=== PATIENT | female | born 2000 | race Caucasian/White ===

== ENCOUNTER 2019-10-18 18:31 | Inpatient (IN) | payer OTHER ==
[2019-10-18 20:40] VITALS: BMI 21.9
--- NOTE | 2019-10-18 21:44 | HP ---
CIWA Score - Admission Criteria [facility] Guidelines: Admission for Medically Managed Detox: Requires at least one of the followin. CIWA greater than 12 2. Seizures within the past 24 hours 3. Delirium tremens within the past 24 hours 4. Hallucinations within the past 24 hours 5. Acute intervention needed for co occurring medical disorder 6. Acute intervention needed for co occurring psychiatric disorder 7. Severe withdrawal that cannot be handled at a lower level of care (continued vomiting, continued diarrhea, abnormal vital signs) requiring intravenous medication and/or fluids 8. Admission ROS [facility] - [facility] Chief Complaint: seeking rehab for benzo and alcohol dependence Allergies/Adverse Reactions: Allergies Allergy/AdvReac Type Severity Reaction Status Date / Time No Known Allergies Allergy Verified 10/18/19 20:30 History of Present Illness: here for rehab services. client is referred by family for alcohol , xanax and cannabis dependence. client reports addicition of mentioned substances started t 6 months ago. reports daily use of alcohol and approx 4 mg of xanax qod. she reports last use of both alcohol and xanax 4 days ago. denies shakes, sweats, anxiety, avh, headache, n/v/d. denies hx/o seizures, +black outs- most recent 4 days ago. denies si/hi. reports first inpatient txment. lives with mother, unemployed, family court Exam Limitations: No Limitations - Ebola screening Have you traveled outside of the country in the last 21 days: No (N) Have you had contact with anyone from an Ebola affected area: No Do you have a fever: No - Review of Systems Constitutional: No Symptoms Reported EENT: reports: Dental Problems (cracked tooth pain) Respiratory: reports: No Symptoms reported Cardiac: reports: No Symptoms Reported GI: reports: No Symptoms Reported : reports: No Symptoms Reported Musculoskeletal: reports: No Symptoms Reported Integumentary: reports: Other (lip abrasion) Neuro: reports: Other (black outs) Endocrine: reports: No Symptoms Reported Hematology: reports: No Symptoms Reported Psychiatric: reports: Orientated x3 Other Systems: Reviewed and Negative Patient History - Patient Medical History Hx Anemia: No Hx Asthma: No Hx Chronic Obstructive Pulmonary Disease (COPD): No Hx Cancer: No Hx Cardiac Disorders: No Hx Congestive Heart Failure: No Hx Hypertension: No Hx Hypercholesterolemia: No Hx Pacemaker: No HX Cerebrovascular Accident: No Hx Seizures: No Hx Diabetes: No Hx Gastrointestinal Disorders: No Hx Liver Disease: No Hx Genitourinary Disorders: No Hx Sexually Transmitted Disorders: Yes (gonorrhea, chlamydia, trich) Hx Renal Disease (ESRD): No Hx Thyroid Disease: No Hx Human Immunodeficiency Virus (HIV): No Hx Hepatitis C: No Hx Depression: No Hx Suicide Attempt: No Hx Bipolar Disorder: No Hx Schizophrenia: No Other Medical History: denies - Patient Surgical History Past Surgical History: Yes Hx Orthopedic Surgery: Yes (left knee) - PPD History Previous Implant?: Yes Documented Results: Negative w/o proof Implanted On Prior [facility] Admission?: No PPD to be Administered?: Yes - Reproductive History Patient is a Female of Child Bearing Age (11 -55 yrs old): Yes Last Menstrual Period: 10/05/19 LMP comment: reg Patient : No (neg uhcg) - Smoking Cessation Smoking history: Current every day smoker Have you smoked in the past 12 months: Yes Aproximately how many cigarettes per day: 3 Hx Chewing Tobacco Use: No Initiated information on smoking cessation: Yes 'Breaking Loose' booklet given: 10/18/19 - Substance & Tx. History Hx Alcohol Use: Yes Hx Substance Use: Yes Substance Use Type: Alcohol, Marijuana, Tranquilizers (xanax) Hx Substance Use Treatment: No - Substances abused Alcohol Substance route: Oral Frequency: Daily Amount used: 3 to 4 drinks Tequila/ 8 oz cups Age of first use: 16 Date of last use: 10/15/19 Alprazolam (Xanax) Substance route: Oral Frequency: 1-2 times per week Amount used: 4mg Age of first use: 16 Date of last use: 10/15/19 Admission Physical Exam S - Vital Signs Vital Signs: Vital Signs - 24 hr 10/18/19 20:29 Temperature 98.4 F Pulse Rate 67 Respiratory 16 Rate Blood Pressure 104/68 - Physical General Appearance: Yes: Appropriately Dressed HEENTM: Yes: EOMI, Normocephalic, Normal Voice, TAWNYA, Pharynx Normal, Other ( non traumatic cracked tooth) Respiratory: Yes: Chest Non-Tender, Lungs Clear, Normal Breath Sounds, No Respiratory Distress, No Accessory Muscle Use Neck: Yes: No masses,lesions,Nodules, Supple, Trachea in good position Breast: Yes: Breast Exam Deferred Cardiology: Yes: Regular Rhythm, Regular Rate, S1, S2 Abdominal: Yes: Normal Bowel Sounds, Non Tender, Soft Genitourinary: Yes: Within Normal Limits Back: Yes: Normal Inspection Musculoskeletal: Yes: full range of Motion Extremities: Yes: Normal Capillary Refill, Normal Range of Motion, Non-Tender Neurological: Yes: Fully Oriented, Alert, Motor Strength 5/5 Integumentary: Yes: Dry, Warm, Other (healing laceration of lip resolving ecchymosis of the knees s/p fall 4 days ago) Lymphatic: Yes: Within Normal Limits - Diagnostic (1) Alcohol dependence, uncomplicated Current Visit: Yes Status: Acute (2) Sedative, hypnotic or anxiolytic dependence, uncomplicated Current Visit: Yes Status: Acute (3) Cannabis dependence, uncomplicated Current Visit: Yes Status: Acute (4) Nicotine dependence Current Visit: Yes Status: Chronic Qualifiers: Nicotine product type: cigarettes Substance use status: uncomplicated Qualified Code(s): F17.210 - Nicotine dependence, cigarettes, uncomplicated (5) Broken or cracked tooth, nontraumatic Current Visit: Yes Status: Acute (6) Laceration of lip with delay in treatment Current Visit: Yes Status: Acute Comment: 4 days ago-healing Cleared for Admission [facility] - Detox or Rehab Detox Regimen/Protocol: Not Applicable Claeared for Rehab Admission: Yes Breathalyzer - Breathalyzer Breathalyzer: 0 Urine Drug Screen - Test Device Lot number: [id number] Expiration date: 06/22/21 - Control Is test valid?: Yes - Results Drug screen NEGATIVE: No Urine drug screen results: THC-Marijuana, BZO-Benzodiazepines Inpatient Rehab Admission - Rehab Decision to Admit Inpatient rehab admission?: Yes - Initial Determination Are CD services needed?: Yes Free of communicable disease: Yes Not in need of hospitalization: Yes - Rehab Admission Criteria Previous failed treatment: Yes Poor recovery environment: Yes Comorbidities: No Lacks judgement: No Patient is meeting Inpatient Rehab admission criteria:: Yes
[2019-10-18] MEDS ORDERED: P-EPHED 60MG/TRIPROLIDI 2.5MG TABLET PO PRN (21:52)
[2019-10-18] MEDS ORDERED: LOPERAMIDE HCL 2 MG CAPSULE PO PRN (21:52)
[2019-10-18] MEDS ORDERED: MAGNESIUM HYDROX 2400MG/30ML ORAL SUSPENSION 30 ML CUP PO PRN (21:52)
[2019-10-18] MEDS ORDERED: ACETAMINOPHEN 325 MG TABLET (FP) PO PRN (21:52)
[2019-10-18] MEDS ORDERED: MAG HYDROX/AL HYDROX/SIMETH 30 ML UNIT-DOSE CUP PO PRN (21:52)
[2019-10-18] MEDS ORDERED: guaiFENesin 200 MG/10 ML 10 ML UNIT-DOSE CUPS PO PRN (21:52)
[2019-10-18] MEDS ORDERED: NICOTINE POLACRILEX 2 MG GUM BC PRN (21:52)
[2019-10-18] MEDS ORDERED: MENTHOL/PHENOL 1 EACH UD MM PRN (21:52)
[2019-10-18] MEDS ORDERED: MAGNESIUM CITRATE 300 ML BOTTLE PO PRN (21:52)
[2019-10-18] MEDS ORDERED: IBUPROFEN 400 MG TABLET (FP) PO PRN (21:52)
[2019-10-18] MEDS ORDERED: TUBERCULIN PPD 5 TU/0.1ML VIAL ID ONE (23:17)
[2019-10-18] MEDS: THIAMINE HCL 100 MG TABLET (FP) PO SCH (23:27)
[2019-10-19] MEDS: PRENATAL VITAMINS W/ FOLIC ACID TABLET (FP) PO SCH (10:19)
[2019-10-19] MEDS: NICOTINE 14 MG/24 HOURS TOPICAL PATCH TD SCH (10:19)
[2019-10-19 10:24] LABS: ALBUMIN 4.1 g/dl (3.4-5.0); BILIRUBIN,TOTAL 0.6 mg/dL (0.2-1); BLOOD UREA NITROGEN 12.2 mg/dL (7-18); CALCIUM 9.2 mg/dL (8.5-10.1); CREATININE 0.9 mg/dL (0.55-1.3); POTASSIUM 3.8 mmol/L (3.5-5.1)
[2019-10-19 10:39] LABS: HEMATOCRIT 43.1 % (32.4-45.2); HEMOGLOBIN 14.5 GM/dL (10.7-15.3); MCH 32.8 pg (25.7-33.7); MCHC 33.7 g/dl (32.0-36.0); MEAN CELL VOLUME 97.4 fl (80-96); MEAN PLT VOLUME 7.4 fl (7.5-11.1); PLATELET COUNT 308 K/MM3 (134-434); RBC 4.43 M/mm3 (3.60-5.2); WHITE BLOOD COUNT 5.6 K/mm3 (4.0-10.0)
--- NOTE | 2019-10-19 10:49 | EKG ---
Test Reason : Blood Pressure : / mmHG Vent. Rate : 058 BPM Atrial Rate : 058 BPM P-R Int : 120 ms QRS Dur : 088 ms QT Int : 416 ms P-R-T Axes : 023 041 040 degrees QTc Int : 408 ms SINUS BRADYCARDIA OTHERWISE NORMAL ECG NO PREVIOUS ECGS AVAILABLE Confirmed by SUSANNA RANDALL, MARIA C ([id number]) on 10/19/2019 10:49:10 AM Referred By: Juan Dumont Confirmed By:MARIA C MULLINS MD
[2019-10-19] MEDS ORDERED: BENZOCAINE 20 % GEL TUBE MM PRN (11:51)
[2019-10-19] MEDS: hydrOXYzine PAMOATE 50 MG CAPSULE (FP) PO PRN (13:50)
[2019-10-19] MEDS ORDERED: COLLOIDAL OATMEAL 1 BAR EACH TP PRN (15:16)
[2019-10-19] MEDS: THIAMINE HCL 100 MG TABLET (FP) PO SCH (21:39)
[2019-10-20] MEDS: PRENATAL VITAMINS W/ FOLIC ACID TABLET (FP) PO SCH (09:41)
[2019-10-20] MEDS: NICOTINE 14 MG/24 HOURS TOPICAL PATCH TD SCH (09:41)
[2019-10-20] MEDS: hydrOXYzine PAMOATE 50 MG CAPSULE (FP) PO PRN (18:06)
[2019-10-20] MEDS: THIAMINE HCL 100 MG TABLET (FP) PO SCH (21:25)
[2019-10-21] MEDS: PRENATAL VITAMINS W/ FOLIC ACID TABLET (FP) PO SCH (09:51)
[2019-10-21] MEDS: NICOTINE 14 MG/24 HOURS TOPICAL PATCH TD SCH (09:51)
--- NOTE | 2019-10-21 13:14 | PN ---
[facility] Progress Note (SOAP) Subjective: patient seen for elevated random blood glucose. Denies hx of diabetes, also c/o of epigastric pain this AM, now resolved. She refused mylanta or motrin for same. Objective: P/E General: no apparent distress HEENTM: normocephalic, broken tooth Neck: supple, Lungs: clear Heart: s1 s2 Abd: +BS, non-tender, non-distended. Neuro: Cn 2-12 intact 10/21/19 13:11 Assessment: hyperglycemia epigastric pain 10/21/19 13:13 Plan: Ordered Hgb A1c and BGM x2 Advised patient to take mylanta if needed and notify RN if she has another occurrence of epigastric pain
--- NOTE | 2019-10-21 15:05 | PREP.REFER ---
HIV PrEP/PEP - PrEP HIV Risk Assessment When was your last HIV test?: last HIV test was in August 2019--it was negative HIV Test offered: Refused Are you concerned about any sexual encounters past 6 months?: Yes (Patient has unprotected sex with a steady partner and other occasional partners) Have you had a STI in the last 6 months?: Yes (GC/Chlamydia. She will be tested for same while in rehab. Refused HIV test. Reports oral, vaginal, and occasional anal sex.) Have you shared needles or other equipment?: No Are you interested in daily medication to help prevent HIV?: No (PrEP was discussed with patient; she was educated about how it works and the evaluation needed prior to starting. Discussed the importance of PrEP for women. She is not interested at this time but may consider it in the future.) Recommendation: Consider PrEP referral Comment: This is a 19 year old female who receives care at an adolescent clinic and states that she has a good relationship with the providers there. She gets HIV testing on a regular basis because she is concerned about her risk for HIV. She denies transactional sex for drugs or other commodities. Encouraged her to continue discussion about PrEP at her clinic.
[2019-10-21 17:31] LABS: URINE APPEARANCE CLOUDY; URINE BILIRUBIN NEGATIVE (NEGATIVE); URINE COLOR YELLOW; URINE GLUCOSE (UA) NEGATIVE (NEGATIVE); URINE KETONE NEGATIVE (NEGATIVE); URINE LEUK ESTERASE NEGATIVE (NEGATIVE); URINE NITRITE NEGATIVE (NEGATIVE); URINE PROTEIN NEGATIVE (NEGATIVE); URINE UROBILINOGEN 0.2 mg/dL (0.2-1.0)
[2019-10-21] MEDS: THIAMINE HCL 100 MG TABLET (FP) PO SCH (21:27)
[2019-10-22 07:23] VITALS: BP 97/59; PULSE 74; TEMP 98.1
[2019-10-22] MEDS: PRENATAL VITAMINS W/ FOLIC ACID TABLET (FP) PO SCH (10:17)
[2019-10-22] MEDS: NICOTINE 14 MG/24 HOURS TOPICAL PATCH TD SCH (10:18)
[2019-10-22] MEDS: hydrOXYzine PAMOATE 50 MG CAPSULE (FP) PO PRN (14:07)
[2019-10-22] MEDS: THIAMINE HCL 100 MG TABLET (FP) PO SCH (21:07)
[2019-10-23] MEDS: NICOTINE 14 MG/24 HOURS TOPICAL PATCH TD SCH (09:57)
[2019-10-23] MEDS: PRENATAL VITAMINS W/ FOLIC ACID TABLET (FP) PO SCH (09:57)
[2019-10-23] MEDS: THIAMINE HCL 100 MG TABLET (FP) PO SCH (21:39)
[2019-10-23] MEDS: MELATONIN 5 MG TABLETS PO PRN (23:43)
[2019-10-24] MEDS: PRENATAL VITAMINS W/ FOLIC ACID TABLET (FP) PO SCH (10:10)
[2019-10-24] MEDS: NICOTINE 14 MG/24 HOURS TOPICAL PATCH TD SCH (10:10)
[2019-10-24] MEDS: THIAMINE HCL 100 MG TABLET (FP) PO SCH (21:15)
[2019-10-24] MEDS: MELATONIN 5 MG TABLETS PO PRN (23:07)
[2019-10-25] MEDS: PRENATAL VITAMINS W/ FOLIC ACID TABLET (FP) PO SCH (10:08)
[2019-10-25] MEDS: NICOTINE 14 MG/24 HOURS TOPICAL PATCH TD SCH (10:08)
--- NOTE | 2019-10-25 12:37 | DS ---
[facility] Rehab Discharge Summary - [facility] Rehab Discharge Summary Admission Date: 10/18/19 Discharge Date: 10/25/19 - History Present History: Alcohol dependence, Cannabis dependence, Sedative dependence Additional Comments: Pt is a 19 y/o female with a hx of SHAHLA admitted to [facility] and discharging today. Pt has been referred to [facility] on [address] for CD aftercare treatment. Pt reports she goes to [facility] on [place], [place] for primary care management. Pertinent Past History: Broken/Cracked tooth-nontruamatic Laceration of Lip - Discharge Physical Exam Vital Signs: Vital Signs Temperature 98.1 F 10/22/19 07:22 Pulse Rate 74 10/22/19 07:22 Respiratory Rate 18 10/25/19 07:21 Blood Pressure 97/59 L 10/22/19 07:22 O2 Sat by Pulse Oximetry (%) Al Pertinent Admission Physical Exam Findings: Laboratory Tests 10/18/19 10/19/19 10/19/19 21:38 07:00 07:00 WBC 5.6 RBC 4.43 Hgb 14.5 Hct 43.1 MCV 97.4 H MCH 32.8 MCHC 33.7 RDW 14.0 Plt Count 308 MPV 7.4 L Sodium 140 Potassium 3.8 Chloride 108 H Carbon Dioxide 22 Anion Gap 9 BUN 12.2 Creatinine 0.9 Est GFR (CKD-EPI)AfAm 105.93 Est GFR (CKD-EPI)NonAf 91.40 Random Glucose 191 H Calcium 9.2 Total Bilirubin 0.6 AST 9 L ALT 17 Alkaline Phosphatase 92 Total Protein 8.0 Albumin 4.1 Urine Color Urine Appearance Urine pH Ur Specific [place] Urine Protein Urine Glucose (UA) Urine Ketones Urine Blood Urine Nitrite Urine Bilirubin Urine Urobilinogen Ur Leukocyte Esterase POC Urine HCG, Qual Negative Pharyngeal C. trach KIP Phary N.gonorrhoeae KIP RPR Titer 10/19/19 10/21/19 10/21/19 07:00 Unknown Unknown WBC RBC Hgb Hct MCV MCH MCHC RDW Plt Count MPV Sodium Potassium Chloride Carbon Dioxide Anion Gap BUN Creatinine Est GFR (CKD-EPI)AfAm Est GFR (CKD-EPI)NonAf Random Glucose Calcium Total Bilirubin AST ALT Alkaline Phosphatase Total Protein Albumin Urine Color Yellow Urine Appearance Cloudy Urine pH 7.0 Ur Specific [place] 1.020 Urine Protein Negative Urine Glucose (UA) Negative Urine Ketones Negative Urine Blood Negative Urine Nitrite Negative Urine Bilirubin Negative Urine Urobilinogen 0.2 Ur Leukocyte Esterase Negative POC Urine HCG, Qual Pharyngeal C. trach KIP TNP Phary N.gonorrhoeae KIP TNP RPR Titer Nonreactive - Treatment Discharge Condition: Discharge condition good Hospital Course: Rehabilitated safely CD aftercare referral accepted - Medication Discharge Medications: Ambulatory Orders NK [No Known Home Medication] 10/18/19 - Medication-Assisted Treatment (MAT) Medication-Assisted Treatment (MAT): No - Discharge Instructions Diet, activity, other medical instructions: Diet:Regular Activity: oob ad brown Other medical instructions:Follow up with CD aftercare referral at [facility] as scheduled. Follow up with primary care - Diagnosis (1) Alcohol dependence, uncomplicated Current Visit: Yes Status: Chronic (2) Cannabis dependence, uncomplicated Current Visit: Yes Status: Chronic (3) Sedative, hypnotic or anxiolytic dependence, uncomplicated Current Visit: Yes Status: Chronic (4) Nicotine dependence Current Visit: Yes Status: Chronic Qualifiers: Nicotine product type: cigarettes Substance use status: uncomplicated Qualified Code(s): F17.210 - Nicotine dependence, cigarettes, uncomplicated (5) Broken or cracked tooth, nontraumatic Current Visit: Yes Status: Chronic (6) Laceration of lip with delay in treatment Current Visit: Yes Status: Resolved - Follow-up Referral Minutes to complete discharge: 20 - AMA Did Patient Leave Against Medical Advice: No
== END 2019-10-25 13:40 | disposition home or self-care (01) | DRG 772 ==
LOC: YASAS 18:31 → Y3E 21:43
PROVIDERS: ADMIT Neuromusculoskeletal Medicine & OMM; ATTEND Neuromusculoskeletal Medicine & OMM
PROC: HZ40ZZZ Group Counseling for Substance Abuse Treatment, Cognitive (ICD-10-PCS; principal; 2019-10-18)
DX: F10.20 Alcohol dependence, uncomplicated (principal); F13.20 Sedative, hypnotic or anxiolytic dependence, uncomplicated; F12.20 Cannabis dependence, uncomplicated; F17.210 Nicotine dependence, cigarettes, uncomplicated; K03.81 Cracked tooth; R73.9 Hyperglycemia, unspecified; Z86.19 Personal history of other infectious and parasitic diseases; Z72.51 High risk heterosexual behavior; S01.511D Laceration without foreign body of lip, subsequent encounter; W19.XXXD Unspecified fall, subsequent encounter
CPT/HCPCS: 36415; 80053; 81003; 81025; 85027; 86593; 93005; 93010